=== PATIENT | male | born 1940 | race Caucasian/White ===

== ENCOUNTER 2019-08-07 12:07 | Inpatient (IN) | payer BC, OTHER ==
[~2019-08-07] VITALS: Ht 180.3 cm; Wt 891.3 kg
--- NOTE | 2019-08-07 12:15 | NUR ---
[id number] FROM [facility] FOR NOTED WEAKNESS AND MORE ALTERED THAN NORMAL, TO ER BED 9, HOOKED TO MONITOR, CHANGED TO HOS GOWN, WARM BLABKET PROVIDED, PATIENT AAO x 0, BREATHING EVEN AND UNLABORED, DR HURT AT BEDSIDE
[2019-08-07] MEDS ORDERED: IV NS 0.9% 1,000 ML BAG IV ONE (12:30)
[2019-08-07 12:43] LABS: BASOPHILS # (AUTO) 0.1 /CMM (0.0-0.2); BASOPHILS % (AUTO) 0.9 % (0.0-2.0); EOSINOPHILS % (AUTO) 4.4 % (0.0-6.0); HEMATOCRIT 43 % (39-51); HEMOGLOBIN 13.8 g/dL (13.5-17.5); LYMPHOCYTES # (AUTO) 0.5 /CMM (0.8-4.8); LYMPHOCYTES % (AUTO) 7.5 % (20.0-44.0); MEAN CORPUSCULAR HGB CONC 32 g/dl (31.0-36.0); MEAN CORPUSCULAR VOLUME 85 fL (80-96); MONOCYTES # (AUTO) 0.6 /CMM (0.1-1.30); MONOCYTES % (AUTO) 9.2 % (2.0-12.0); NEUTROPHILS # (AUTO) 5.5 /CMM (1.8-8.9); PLATELET COUNT (AUTO) 292 /CMM (150-450); RED BLOOD CELL COUNT(AUTO) 5.09 MIL/uL (4.5-6.0)
--- NOTE | 2019-08-07 12:55 | NUR ---
DIRECTOR DIGITAL ADVERTISING AT BEDSIDE FOR XRAY
--- NOTE | 2019-08-07 13:04 | NUR ---
urine sample collected via jackson catheter, sample sent to lab
[2019-08-07 13:05] LABS: ALANINE AMINOTRANSFERASE 11 U/L (12-78); ALBUMIN 2.4 g/dL (3.4-5.0); ALKALINE PHOSPHATASE 134 U/L (46-116); ASPARTATE AMINOTRANSFERASE 12 U/L (15-37); BILIRUBIN,DIRECT 0.2 mg/dL (0.0-0.2); BILIRUBIN,TOTAL 0.6 mg/dL (0.2-1.0); CALCIUM, SERUM 8.4 mg/dL (8.5-10.1); CARBON DIOXIDE 30 mmol/L (21-32); CHLORIDE 106 mmol/L (98-107); CREATININE 0.8 mg/dL (0.6-1.3); GLUCOSE 85 mg/dL (74-106); LIPASE 75 U/L (73-393); POTASSIUM 3.5 mmol/L (3.5-5.1); SODIUM SERUM 141 mmol/L (136-145); TOTAL PROTEIN, SERUM 5.6 g/dL (6.4-8.2); UREA NITROGEN, BLOOD 9 mg/dL (7-18)
[2019-08-07 13:09] LABS: APPEARANCE,URINE Clear (CLEAR); BILIRUBIN,URINE Negative (NEGATIVE); BLOOD, URINE Small Ery/uL (NEGATIVE); COLOR,URINE Yellow (YELLOW); KETONES,URINE Negative (NEGATIVE); LEUKOCYTE ESTERASE ,URINE Large (NEGATIVE); NITRITE, URINE Negative (NEGATIVE); PROTEIN,URINE Negative (NEGATIVE); UGLUCOSE Negative (NEGATIVE)
[2019-08-07 13:24] LABS: WBC,URINE 21-50 /HPF (0-3)
[2019-08-07 13:25] LABS: BACTERIA,URINE Moderate /HPF (None Seen); SQUAMOUS EPITHELIAL CELL,UR Rare /HPF (None Seen)
--- NOTE | 2019-08-07 13:42 | NUR ---
PAGED [facility].
[2019-08-07] MEDS ORDERED: IV NS 0.9% 1,000 ML IV PRN (13:46)
--- NOTE | 2019-08-07 13:56 | NUR ---
TELEPHONE ORDERS FOR ADMISSION RECEIVED FROM DR QUINTANA.
[2019-08-07] MEDS ORDERED: ATOR10TA PO (13:58)
[2019-08-07] MEDS ORDERED: PANT40TA2 PO (13:58)
[2019-08-07] MEDS ORDERED: TRAZ-182 PO (13:58)
[2019-08-07] MEDS ORDERED: DABI150C PO (13:58)
[2019-08-07] MEDS ORDERED: POTA10TA10 PO (13:58)
[2019-08-07] MEDS ORDERED: BUPR-51 PO (13:58)
[2019-08-07] MEDS ORDERED: QUET25TA PO (13:58)
[2019-08-07] MEDS ORDERED: CEPH-570 PO (13:58)
[2019-08-07] MEDS ORDERED: ZOLPIDEM TARTRATE 5 MG TABLET PO PRN (14:00)
[2019-08-07] MEDS ORDERED: HYDROCODONE/APAP 5/325MG 1 EACH TABLET PO PRN (14:00)
[2019-08-07] MEDS ORDERED: MAG HYDROX/AL HYDROX/SIMETH 30 ML UDC PO PRN (14:00)
[2019-08-07] MEDS ORDERED: ACETAMINOPHEN 325 MG TABLET PO PRN ×2 (14:00→17:00)
[2019-08-07] MEDS ORDERED: CEFEPIME 1 GM in IV D5W 50 ML IV ONE (14:00)
[2019-08-07] MEDS ORDERED: Z GUARD REMEDY 2 OZ OINT TP PRN (14:00)
[2019-08-07] MEDS ORDERED: ONDANSETRON HCL/PF 4 MG/2 ML VIAL IVP PRN ×2 (14:00→17:00)
[2019-08-07] MEDS ORDERED: MAGNESIUM HYDROXIDE 30 ML UDC PO PRN (14:00)
--- NOTE | 2019-08-07 14:05 | NUR ---
NURSING SUP GAVE [phone].
--- NOTE | 2019-08-07 14:06 | NUR ---
KENNETH BHATT WHEELED OUT PATIENT VIA ticketea FOR HEAD CT
--- NOTE | 2019-08-07 14:10 | NUR ---
REPORT GIVEN TO ESTHER DOTY OF TELE UNIT
[2019-08-07 15:00] VITALS: BP 126/62
[2019-08-07 16:00] VITALS: BP 101/59
[2019-08-07] MEDS ORDERED: ACETAMINOPHEN 650 MG/SUPP.RECT RC PRN (17:00)
[2019-08-07] MEDS: QUETIAPINE FUMARATE 25 MG TABLET PO SCH (17:00)
[2019-08-07] MEDS ORDERED: LORAZEPAM INJ 2 MG/ML VIAL IVP PRN (17:00)
[2019-08-07] MEDS: DABIGATRAN ETEXILATE MESYLATE 150 MG CAPSULE PO SCH (17:00)
[2019-08-07] MEDS: IV NS 0.9% 1,000 ML IV PRN (17:25)
[2019-08-07] MEDS: ATORVASTATIN 10 MG TABLET PO SCH (17:35)
--- NOTE | 2019-08-07 17:35 | NUR ---
COMPOSITE WORKER - MEDICATION, THAT PATIENT IS UNABLE TO SWALLOW ASPIRATION RISK AT THIS TIME
[2019-08-07] MEDS ORDERED: PIPERACILLIN /TAZOBACTAM 3.375 G in IV D5W 50 ML IV ONE (18:00)
--- NOTE | 2019-08-07 18:49 | NUR ---
STORE WORKER PATIENT RESTING IN BED. PATIENT HAS L FA 20 WITH NS 75 ML/ HR. PATIENT HAS 2 L OXYGEN SATURATING >95 % PATIENT SKIN INTACT, NO SOB, NO ACUTE RESPIRATORY DISTRESS. PATIENT URINE YELLOW CLEAR SLIGHTLY CLOUD. AM CARE PROVIDE, PATIENT UNABLE TO TAKE MEDICATION, DO TO CONDITION HE IS ASPIRATION RISK AT THIST TIME. BED LOCKED LOWEST POSITION CALL LIGHT WITH IN REACH ALL SAFETY MEASURE IMPLEMENTED PER HOSPITAL POLICY
--- NOTE | 2019-08-07 19:40 | NUR ---
RN OPENING NOTES RECEIVED REPORT FROM JEREL RN. FOUND Pt ASLEEP IN BED, VERY LETHARGIC. BUT IS ABLE TO AWAKE, WHEN BODY IS SHOOK. Pt IS A/OX/1. Pt IS ABLE TO SITE NAME, BUT SPEECH IS DELAYED AND VERY LETHARGIC IN RESPONSE. WHEN ASKED IF HE KNOWS WHERE HE IS, Pt GIVES NO ANSWER. WHEN ASKED IF HE KNOWS WHERE HE LIVES, Pt SAYS NO. NO S/S OF ACUTE DISTRESS OR SOB NOTED. ON TELE MONITOR SR WHEN AWAKE, SB WHEN SLEEPING. IV ACCESS ON LFA #20G, IVF NS RUNNING @75ML/HR. SAFETY MEASURES IN PLACE. BED LOW, LOCKED, HOB ELEVATED, SIDE RAILS UP, CALL LIGHT AND BEDSIDE TABLE WITHIN REACH. BED ALARM ON. WILL CONTINUE TO MONITOR Pt's CONDITION AND SAFETY THROUGHOUT THE NIGHT.
[2019-08-07] MEDS: TRAZODONE 50 MG TABLET PO SCH (22:00)
--- NOTE | 2019-08-07 22:19 | NUR ---
RN NOTES Pt IS TOO LETHARGIC AND UNABLE TO FOLLOW SIMPLE DIRECTIONS. HELD PO NIGHT MEDS FOR TONIGHT DUE TO ASPIRATION RISK. SWALLOW EVAL ORDERED FOR Pt.
[2019-08-08] VITALS: BP 107/56
[2019-08-08] MEDS: PIPERACILLIN /TAZOBACTAM 3.375 G in IV D5W 100 ML IV SCH ×3 (00:10→17:02)
[2019-08-08 04:00] VITALS: BP 115/70
--- NOTE | 2019-08-08 05:45 | NUR ---
RN NOTES NOTICED SKIN ISSUES ON Pt WHEN GIVING BED BATH EARLIER IN THE SHIFT. PER DAYSHIFT RN WHO ADMITTED THE Pt, STATED THAT HIS SKIN WAS INTACT. NOTED SACRAL/BUTTOCK - REDNESS; SCROTAL REDNESS & SWELLING; LEFT LOWER ABD'L SKIN FOLD - SKIN TEAR, RIGHT LOWER ABD/RT SIDE - DRY/RED PATCHES/SCABS. WILL TAKE PICTURES AND PLACE IN Pt's CHART.
--- NOTE | 2019-08-08 07:00 | NUR ---
RN CLOSING NOTES NO SIGNIFICANT CHANGES IN Pt's CONDITION. NO S/S OF ACUTE DISTRESS OR SOB NOTED DURING THE NIGHT. Pt IS RESTING IN BED. ALL NEEDS MET AND ATTENDED TO. SAFETY MEASURES IN PLACE. ENDORSED TO DAYSHIFT RN FOR Pt's ALECIA.
[2019-08-08 07:05] LABS: BASOPHILS # (AUTO) 0.1 /CMM (0.0-0.2); BASOPHILS % (AUTO) 1.1 % (0.0-2.0); EOSINOPHILS % (AUTO) 7.2 % (0.0-6.0); HEMATOCRIT 43 % (39-51); HEMOGLOBIN 13.9 g/dL (13.5-17.5); LYMPHOCYTES # (AUTO) 0.4 /CMM (0.8-4.8); MEAN CORPUSCULAR HGB CONC 32 g/dl (31.0-36.0); MEAN CORPUSCULAR VOLUME 85 fL (80-96); MONOCYTES # (AUTO) 0.4 /CMM (0.1-1.30); MONOCYTES % (AUTO) 5.3 % (2.0-12.0); NEUTROPHILS # (AUTO) 5.6 /CMM (1.8-8.9); NEUTROPHILS % (AUTO) 80.4 % (43.0-81.0); PLATELET COUNT (AUTO) 279 /CMM (150-450); WHITE BLOOD COUNT (AUTO) 6.9 K/uL (4.3-11.0)
--- NOTE | 2019-08-08 07:27 | NUR ---
senior telecommunications specialist notes place a call to lab ,spoke to rosalio Richardson testing was received by them
[2019-08-08] MEDS ORDERED: PANTOPRAZOLE 40 MG TABLET.DR PO SCH ×2 (07:30)
[2019-08-08 07:52] LABS: CALCIUM, SERUM 8.5 mg/dL (8.5-10.1); CREATININE 0.8 mg/dL (0.6-1.3); POTASSIUM 3.7 mmol/L (3.5-5.1)
[2019-08-08 08:00] VITALS: BP 121/83
[2019-08-08] MEDS: PANTOPRAZOLE 40 MG VIAL IV SCH (09:51)
[2019-08-08] MEDS: POTASSIUM CHLORIDE 10 MEQ TABLET.SA PO SCH (09:51)
[2019-08-08] MEDS: BUPROPION XL 150 MG TAB.ER.24 PO SCH (09:51)
[2019-08-08] MEDS: DABIGATRAN ETEXILATE MESYLATE 150 MG CAPSULE PO SCH ×2 (10:27→17:03)
[2019-08-08] MEDS: QUETIAPINE FUMARATE 25 MG TABLET PO SCH ×2 (11:50→17:02)
[2019-08-08 12:00] VITALS: BP 130/77
[2019-08-08 14:39] LABS: ABG BASE EXCESS 1.2 mmol/L; ABG OXYGEN SATURATION 99.8 % (92.0-98.5); ABG PCO2 36.1 mmHg (35.0-45.0); ABG PH 7.454 (7.350-7.450); AaDO2 211.9 mmHg; COHb 0.4 % (0.5-1.5); MetHb 0.3 % (0.0-1.5); O2Hb 99.1 % (94.0-97.0); SITE, ABG Left Radial; VENT MODE, BG NON REBREATHER
[2019-08-08 16:00] VITALS: BP_SYST 102; BP_SYST 135; BP_DIAS 58; BP_DIAS 94
[2019-08-08] MEDS: ATORVASTATIN 10 MG TABLET PO SCH (17:04)
--- NOTE | 2019-08-08 19:30 | NUR ---
RN OPENING NOTES RECEIVED PATIETN RESTING ON BED, VS WNL, A/O X1. NO S/S DISTRESS. NO S/S OF PAIN, CLIENT DENIES PAIN. CLIENT IS ON EXTERNAL TELEMONITOR, AFIB, HR 89. SATURATING AT 98% ON 2L NS. THE LFA IV INFILTRATED/DISCONTINUED. NEW IV SITE ON RFA, 22G ON NS AT 75ML/HR. THE CLIENT IS PENDING WALLOW EVALUATION. ALL NEEDS RENDERED AT THIS TIME. SAFETY MECHANISMS IN PLACE, WILL CONTINUE TO MONITOR.
--- NOTE | 2019-08-08 19:31 | NUR ---
IV INFILTRATED UPON INITIAL ASSESSMENT, THE IV ON THE LEFT FORM ARM WAS INFILTRATING AND NOT REMOVED OR STOPPED TO PREVENT POSSIBLE SKIN DAMAGE. AFTER STOPPING IV INFUSION AND REMOVING THE IV, THE CLIENT SEEM TO BE IN PAIN. AFTER ASSESSING THE ARM, IT IS NOTED THAT IT IS SWOLLEN AND CAUSING PAIN TO THE CLIENT. AT THIS TIME I AM PUTTING ICE PACKS AND ELEVATING THE EXTREMITY WITH EXTRA PILLOWS. WILL CONTINUE TO MONITOR. THE CHARGE NURSE IS AWARE.
[2019-08-08 20:00] VITALS: BP 111/87
[2019-08-08] MEDS: TRAZODONE 50 MG TABLET PO SCH (22:22)
--- NOTE | 2019-08-08 22:26 | NUR ---
the client is able to swallow the medications.... the trozadone at 2100 was given
[2019-08-09] VITALS (7 sets, daily range): BP systolic 104–145; BP diastolic 63–89
[2019-08-09] MEDS: PIPERACILLIN /TAZOBACTAM 3.375 G in IV D5W 100 ML IV SCH ×3 (00:16→15:46)
[2019-08-09] MEDS: IV NS 0.9% 1,000 ML IV PRN (02:23)
--- NOTE | 2019-08-09 04:19 | NUR ---
PATIENT CODE STATUS IS "FULL CODE" BUT UNDER PLAN IN DR. QUINTANA'S NOTES THE PATIENT IS DNR. AN ATTEMPT HAS BEEN MADE TO VERY THE CLIENT'S STATUS CODE BY CALLING ( [facility]) WHERE THE CLIENT CAME FROM AT [phone], BUT THERE WAS NO RESPONSE. WILL CONTINUE TO ATTEMPT AND TO ENDORSE THE NEXT SHIFT.
--- NOTE | 2019-08-09 06:20 | NUR ---
FOR A SECOND TIME TRIED TO ESTABLISH CODE STATUS OF THE PATIENT WITH THE PLACE WHERE THE CLIENT COMES FROM ( [facility]), STILL UNABLE TO CONFIRM WITH THEM. WILL ENDORSE THE INCOMING SHIFT. [phone].
--- NOTE | 2019-08-09 06:22 | NUR ---
RN CLOSING NOTES PATIENT REMAINS STABLE WITH CHANGE OF STATUS. ALL NEEDS RENDERED AT THIS TIME, WILL ENDORSE THE INCOMING SHIFT FOR CONTINUITY OF CARE.
--- NOTE | 2019-08-09 07:19 | NUR ---
COMMERCIAL INTERNSHIP OPENING NOTES RECEIVED PATIENT IN BED, ASLEEP. PATIENT ON OXYGEN THERAPY AT 4 LPM; BREATHING IS EVEN AND UNLABORED AT THIS TIME. NO S/S OF PAIN SUCH FACIAL GRIMACING, GUARDING OR MOANING. ON EXTERNAL ALTERATIONS SUPERVISOR WITH A CURRENT READING OF A-FIB 81 BPM. RFA IV ACCESS G # 20. SAFETY PRECAUTIONS IN PLACE; BED IN LOW POSITION AND LOCKED, RAILS UP X2, CALL LIGHT WITHIN REACH. WILL CONTINUE TO MONITOR PATIENT.
[2019-08-09] MEDS: POTASSIUM CHLORIDE 10 MEQ TABLET.SA PO SCH (08:29)
[2019-08-09] MEDS: PANTOPRAZOLE 40 MG VIAL IV SCH (08:29)
[2019-08-09] MEDS: DABIGATRAN ETEXILATE MESYLATE 150 MG CAPSULE PO SCH ×2 (08:30→17:00)
[2019-08-09] MEDS: BUPROPION XL 150 MG TAB.ER.24 PO SCH (08:30)
--- NOTE | 2019-08-09 08:39 | NUR ---
ZOOLOGY PROFESSOR NOTES PATIENT IS A/O X1. NOT FOCUSING WELL AND DID NOT LOOK SAFE TO ADMINISTER MEDICATIONS. SWALLOW EVAL PENDING. WILL CONTINUE TO MONITOR.
[2019-08-09] MEDS: QUETIAPINE FUMARATE 25 MG TABLET PO SCH ×2 (11:40→17:10)
[2019-08-09] MEDS: ATORVASTATIN 10 MG TABLET PO SCH (17:10)
--- NOTE | 2019-08-09 18:32 | NUR ---
WOUND/OSTOMY CLINICAL NURSE SPECIALIST CLOSING NOTES PATIENT REMAINS IN BED, ASLEEP. DURING THE DAY PATIENT AWAKE, A/O X1. PATIENT ON OXYGEN THERAPY AT 4 LPM; BREATHING IS EVEN AND UNLABORED AT THIS TIME. NO COMPLAINS OF PAIN THROUGHOUT THE DAY. ON EXTERNAL THREAD CUTTER WITH A CURRENT READING OF A-FIB 90S BPM. RFA IV ACCESS G # 20 INFUSING ZOSYN AT THIS TIME. ALL NEEDS ATTENDED TO THROUGHOUT THE DAY. SAFETY PRECAUTIONS REMAIN IN PLACE; BED IN LOW POSITION AND LOCKED, RAILS UP X2, CALL LIGHT WITHIN REACH. WILL ENDORSE TO HUMAN RESOURCE ASSISTANT NURSE.
--- NOTE | 2019-08-09 19:30 | NUR ---
RN OPENING NOTES: RECEIVED PATIENT RESTING ON BED, VS WNL, A/O X1. NO S/S DISTRESS. NO S/S OF PAIN, CLIENT DENIES PAIN. CLIENT IS ON EXTERNAL TELEMONITOR, AFIB, HR 8O'S. SATURATING AT 99% ON 4L NS. IV SITE ON RFA, 22G ON NS AT 75ML/HR. THE CLIENT IS PENDING WALLOW EVALUATION. ALL NEEDS RENDERED AT THIS TIME. SAFETY MECHANISMS IN PLACE, WILL CONTINUE TO MONITOR
[2019-08-09] MEDS: TRAZODONE 50 MG TABLET PO SCH (21:16)
[2019-08-10] VITALS (10 sets, daily range): BP systolic 116–139; BP diastolic 63–73
[2019-08-10] MEDS: PIPERACILLIN /TAZOBACTAM 3.375 G in IV D5W 100 ML IV SCH ×3 (00:26→15:12)
[2019-08-10] MEDS: IV NS 0.9% 1,000 ML IV PRN (00:37)
--- NOTE | 2019-08-10 06:45 | NUR ---
AFTER UNSUCCESSFUL ATTEMPTS TO START AN IV, A MIDLINE WAS RECOMMENDED TO DR ARELLANO. A MIDLINE HAS BEEN ORDER, OK PER DR ARELLANO. [employer] PER KYLE NURSE FIRE AND EXPLOSION INVESTIGATOR.
[2019-08-10 07:12] LABS: BASOPHILS # (AUTO) 0.1 /CMM (0.0-0.2); BASOPHILS % (AUTO) 0.7 % (0.0-2.0); HEMATOCRIT 43 % (39-51); HEMOGLOBIN 13.8 g/dL (13.5-17.5); LYMPHOCYTES # (AUTO) 0.8 /CMM (0.8-4.8); LYMPHOCYTES % (AUTO) 10.8 % (20.0-44.0); MEAN CORPUSCULAR HGB CONC 32 g/dl (31.0-36.0); MEAN CORPUSCULAR VOLUME 85 fL (80-96); MONOCYTES # (AUTO) 0.9 /CMM (0.1-1.30); MONOCYTES % (AUTO) 11.4 % (2.0-12.0); NEUTROPHILS # (AUTO) 5.2 /CMM (1.8-8.9); NEUTROPHILS % (AUTO) 69.1 % (43.0-81.0); PLATELET COUNT (AUTO) 235 /CMM (150-450); RED BLOOD CELL COUNT(AUTO) 5.03 MIL/uL (4.5-6.0); WHITE BLOOD COUNT (AUTO) 7.5 K/uL (4.3-11.0)
[2019-08-10 07:23] LABS: CALCIUM, SERUM 7.8 mg/dL (8.5-10.1); CREATININE 0.6 mg/dL (0.6-1.3); POTASSIUM 3.8 mmol/L (3.5-5.1)
--- NOTE | 2019-08-10 07:30 | NUR ---
RN OPENING NOTES RECEIVED PT IN BED. AWAKE ALERT AND ORIENTED X1. NO CARDIAC OR REPIRATORY DISTRESS NOTED. NO SOB NOTED. SATURATING WELL AT 2L/MIN VIA NC AT 99%. NO SOB NOTED. BREATHING EVEN AND UNLABORED. ON CARDIAC TELE MONITOR SHOWING SR WITH PVCS WITH HR OF 80S. IV ACCESS NOTED TO BE INFILTRATED UPON ROUNDS ON R FOREARM, INFILTRATE CARE TO SITE PROVIDED. IV ACCESS WAS REMOVED. ICE APPLIED AND EXT WAS ELEVATED TO PILLOW. PER KNOT CUTTER NURSE, AWAITNG MIDLINE PLACEMENT AT THIS TIME PER MD ORDERS. BALLOON SELLER AWARE. WILL FOLLOW UP LATER. FALK CATH INTACT AND PATENT AND DRAINING WITH CLEAR YELLOW URINE. SAFETY PRECAUTIONS IN PLACE. BED LOCKED AND IN LOW POSITION SIDE RAILS UP X2. BED ALARM ON. CALL LIGHT WITHIN REACH. WILL CONT TO MONITOR. .
--- NOTE | 2019-08-10 08:00 | NUR ---
IV INSERTION IN RE-INSERTED TO L HAND G24. INTACT AND PATENT AND FLUSHING WELL. PT TOLERATED PROCEDURE WELL.
[2019-08-10] MEDS: PANTOPRAZOLE 40 MG VIAL IV SCH (08:24)
[2019-08-10] MEDS: BUPROPION XL 150 MG TAB.ER.24 PO SCH (08:24)
[2019-08-10] MEDS: POTASSIUM CHLORIDE 10 MEQ TABLET.SA PO SCH (08:24)
--- NOTE | 2019-08-10 08:30 | NUR ---
MIDLINE INSERTION NOTIFIED MORNING RANCH HELPER REGARDING THE NEED FOR MIDLINE FOR PT. PER RANCH HELPER STILL WAITING FOR CONFIRMATION FROM MIDLINE NURSE.
[2019-08-10] MEDS: DABIGATRAN ETEXILATE MESYLATE 150 MG CAPSULE PO SCH ×2 (08:45→16:26)
--- NOTE | 2019-08-10 11:00 | NUR ---
O2 TITRATION PT WAS ON 2L O2 SATURATING AT 100%. ATTEMPTED TO TITRATE O2 TO 1L/MIN TO SEE IF PT WILL TOLERATE. PT WAS KEPT ON 1L/MIN FOR 1HR STARTING AT 10AM. PT STILL SATURATING AT 99%.
--- NOTE | 2019-08-10 11:00 | NUR ---
MIDLINE INSERTION MIDLINE INSERTED ON R UPPER ARM G18. INTACT AND PATENT AND FLUSHING WELL. PT TOLERATED PROCEDURE WELL.
--- NOTE | 2019-08-10 11:23 | NUR ---
WOUND CARE CONSULT: PT PRESENT WITH MULTIPLE SKIN ISSUES PRESENT ON ADMISSION INCLUDING SACRAL SCAR, ABDOMINAL FOLD OPEN SKIN (MOISTURE ASSOCIATED), RASH TO GROIN FOLDS, BUTTOCKS AND PERINEUM AND RT KNEE ABRASION. RECOMMENDATIONS MADE FOR SKIN PROTECTION. DISCUSSED WITH NURSING STAFF. WILL SEE PRNRajesh NICHOLAS IN AGREEMENT WITH PLAN OF CARE. CURRENT FLAVIA SCORE IS 14.
[2019-08-10] MEDS ORDERED: Z GUARD REMEDY 2 OZ OINT TP PRN (11:30)
[2019-08-10] MEDS: Z GUARD REMEDY 2 OZ OINT TP SCH (11:35)
--- NOTE | 2019-08-10 12:00 | NUR ---
O2 REMOVED ONCE AGAIN TITRATED O2 DOWN. I REMOVED PTS O2 TO SEE IF PT WILL TOLERATE. AFTER KEEPING O2 OFF FOR ABOUT 30MIN. PT STILL SATURATING AT 98-99%. PT DOES NOT NEED O2, HE SATURATES WELL ON ROOM AIR. NO SOB NOTED. PTS BREATHING IS EVEN AND UNLABORED.
[2019-08-10] MEDS: QUETIAPINE FUMARATE 25 MG TABLET PO SCH ×2 (12:11→16:26)
[2019-08-10] MEDS: CLOTRIMAZOLE 1% 15 GM TUBE TP SCH (16:28)
[2019-08-10] MEDS: ATORVASTATIN 10 MG TABLET PO SCH (17:12)
--- NOTE | 2019-08-10 18:51 | NUR ---
RN CLOSING NOTES RN OPENING NOTES PT IN BED. AWAKE ALERT AND ORIENTED X1. NO CARDIAC OR RESPIRATORY DISTRESS NOTED. NO SOB NOTED. SATURATING WELL AON ROOM AIR AT 99%. PT DOES NOT NEED TO BE ON O2. BREATHING EVEN AND UNLABORED. ON CARDIAC TELE MONITOR SHOWING SR WITH PVCS WITH HR OF 80S. MIDLINE WASPLACED TODAY ON PTS R UPPER ARM G18, THERE IS ALSO A PERIPHERAL LINE ON PTS L HAND G24. ALL IV ACCESS ARE INTACT AND PATENT AND FLUSHING WELL. NS CURRENTLY RUNNING AT 75ML/HR. FALK CATH INTACT AND PATENT AND DRAINING WITH CLEAR YELLOW URINE. SAFETY PRECAUTIONS IN PLACE. BED LOCKED AND IN LOW POSITION SIDE RAILS UP X2. BED ALARM ON. CALL LIGHT WITHIN REACH. WILL ENDORSE TO NEXT SHIFT.
[2019-08-10] MEDS: TRAZODONE 50 MG TABLET PO SCH (21:15)
[2019-08-11] VITALS (9 sets, daily range): BP systolic 98–133; BP diastolic 68–87
[2019-08-11] MEDS: PIPERACILLIN /TAZOBACTAM 3.375 G in IV D5W 100 ML IV SCH ×2 (01:15→09:08)
--- NOTE | 2019-08-11 06:47 | NUR ---
RN NOTES, PATIENT IN BED, ASLEEP AT THIS TIME, BUT AROUSABLE TO VERBAL STIMULI, NO SIGNIFICANT CHANGE IN CONDITION DURING THE NIGHT, BREATHING EVEN AND UNLABORED, NO SOB/ACUTE DISTRESS NOTED, BED LOCKED IN IN LOW POSITION, CALL LIGHT W/I REACH, WILL ENDORSE CONTINUITY OF CARE TO ONCOMING NURSE.
--- NOTE | 2019-08-11 07:44 | NUR ---
PHYSICAL SCIENCE AIDE OPENING NOTE RECEIVED PATIENT IN BED RESTING COMFORTABLY. PATIENT IN NO ACUTE DISTRESS. NO SOB NOTED. PATIENT BREATHING IS EVEN AND UNLABORED. PATIENT ON CARDIAC MONITORING READING SINUS RHYTHM HR 75. PATIENT BED ALARM IS ON. PATIENT SAFETY PRECAUTIONS IN PLACE. PATIENT BED IS LOCKED AND IN LOWEST POSITION. CALL LIGHT WITHIN REACH. WILL CONTINUE TO MONITOR.
[2019-08-11] MEDS: PANTOPRAZOLE 40 MG VIAL IV SCH (09:08)
[2019-08-11] MEDS: POTASSIUM CHLORIDE 10 MEQ TABLET.SA PO SCH (09:08)
[2019-08-11] MEDS: BUPROPION XL 150 MG TAB.ER.24 PO SCH (09:08)
[2019-08-11] MEDS: DABIGATRAN ETEXILATE MESYLATE 150 MG CAPSULE PO SCH ×2 (09:10→17:55)
[2019-08-11] MEDS: Z GUARD REMEDY 2 OZ OINT TP SCH (09:11)
[2019-08-11] MEDS: CLOTRIMAZOLE 1% 15 GM TUBE TP SCH ×2 (09:11→17:54)
[2019-08-11] MEDS: QUETIAPINE FUMARATE 25 MG TABLET PO SCH ×2 (11:20→17:53)
[2019-08-11] MEDS ORDERED: MEROPENEM 1 G in IV NS 0.9% 100 ML IV ONE (12:00)
--- NOTE | 2019-08-11 15:28 | NUR ---
MS RN NOTE PATIENT IS IN BED RESTING COMFORTABLY. PATIENT IN NO ACUTE DISTRESS. NO SOB NOTED. PATIENT BREATHING IS EVEN AND UNLABORED. PATIENT BED ALARM IS ON. PATIENT KEPT CLEAN, DRY AND COMFORTABLE THROUGHOUT SHIFT. PATIENT SAFETY PRECAUTIONS IN PLACE. PATIENT BED IS LOCKED AND IN LOWEST POSITION. HOB IS ELEVATED. CALL LIGHT WITHIN REACH. GAVE REPORT AND ENDORSED CARE TO JARROD DOTY FOR ALECIA.
[2019-08-11] MEDS: ATORVASTATIN 10 MG TABLET PO SCH (17:53)
--- NOTE | 2019-08-11 18:48 | NUR ---
RN CLOSING NOTE: NO ACUTE CHANGES NOTED ON SHIFT. PATIENT REMAINS IN BED RESTING COMFORTABLY. ON CONT. 02 VIA NC @ 2LPM WITH SATURATION @ 99%. NO ACUTE DISTRESS NOTED. NO SOB NOTED. PATIENT BREATHING IS EVEN AND UNLABORED. NO PAIN REPORTED ON PATIENT. IV SITE CLEAN, DRY, PATENT AND INTACT. IV INFUSION OF NS @ 75MLS/HR BEING TOLERATED WELL. DNR/DNI STATUS NOTED. CALL LIGHT IN REACH. BED LOCKED LOW AND AT SEMI-ARMENDARIZ'S POSITION. SIDE RAILS UP X3. SAFETY ENSURED AND OBSERVED. DUE MEDICATIONS GIVEN. TREATMENT GIVEN ORDERED. WILL ENDORSE TO ONCOMING SHIFT FOR ALECIA.
--- NOTE | 2019-08-11 19:11 | NUR ---
rn note: report given to Mark. Blanca RN
[2019-08-11] MEDS: MEROPENEM 1 G in IV NS 0.9% 100 ML IV SCH (19:53)
[2019-08-11] MEDS: TRAZODONE 50 MG TABLET PO SCH (22:31)
[2019-08-12] MEDS: IV NS 0.9% 1,000 ML IV PRN (00:37)
[2019-08-12] MEDS: MEROPENEM 1 G in IV NS 0.9% 100 ML IV SCH ×3 (03:47→20:34)
[2019-08-12 04:00] VITALS: BP 117/82
[2019-08-12 06:33] LABS: BASOPHILS % (AUTO) 0.8 % (0.0-2.0); EOSINOPHILS % (AUTO) 8.4 % (0.0-6.0); HEMATOCRIT 44 % (39-51); HEMOGLOBIN 14.2 g/dL (13.5-17.5); LYMPHOCYTES # (AUTO) 0.7 /CMM (0.8-4.8); LYMPHOCYTES % (AUTO) 13.1 % (20.0-44.0); MEAN CORPUSCULAR HGB CONC 32 g/dl (31.0-36.0); MEAN CORPUSCULAR VOLUME 84 fL (80-96); MONOCYTES # (AUTO) 0.5 /CMM (0.1-1.30); MONOCYTES % (AUTO) 8.7 % (2.0-12.0); PLATELET COUNT (AUTO) 252 /CMM (150-450); RED BLOOD CELL COUNT(AUTO) 5.23 MIL/uL (4.5-6.0); WHITE BLOOD COUNT (AUTO) 5.7 K/uL (4.3-11.0)
[2019-08-12 07:02] LABS: CALCIUM, SERUM 8.3 mg/dL (8.5-10.1); CREATININE 0.6 mg/dL (0.6-1.3); POTASSIUM 3.3 mmol/L (3.5-5.1)
[2019-08-12 08:00] VITALS: BP 112/80
--- NOTE | 2019-08-12 08:00 | NUR ---
RN OPENING NOTES RECEIVED PT. IN BED. NO ACUTE DISTRESS NOTED. PT. A&OX1, WITH CONFUSION. PT. ON 2L O2 VIA NC, SATURATING WELL AT 99%. PT. QUAN MIDLINE INTACT, PATENT, FLUSHED WELL. PT. FC IN PLACE, PATENT, DRAINING TO GRAVITY. PT. SAFETY MAINTAINED. CALL LIGHT WITHIN REACH. WILL CONTINUE TO MONITOR.
[2019-08-12] MEDS: PANTOPRAZOLE 40 MG VIAL IV SCH (09:21)
[2019-08-12] MEDS: BUPROPION XL 150 MG TAB.ER.24 PO SCH (09:22)
[2019-08-12] MEDS: POTASSIUM CHLORIDE 10 MEQ TABLET.SA PO SCH (09:22)
[2019-08-12] MEDS: DABIGATRAN ETEXILATE MESYLATE 150 MG CAPSULE PO SCH ×2 (09:25→17:09)
[2019-08-12] MEDS: CLOTRIMAZOLE 1% 15 GM TUBE TP SCH ×2 (09:25→17:09)
[2019-08-12] MEDS: Z GUARD REMEDY 2 OZ OINT TP SCH (09:26)
[2019-08-12] MEDS: POTASSIUM CL. PREMIX PERIPHER. 50 ML IV SCH ×2 (11:44→12:44)
[2019-08-12] MEDS: QUETIAPINE FUMARATE 25 MG TABLET PO SCH ×2 (11:44→17:09)
[2019-08-12 12:00] VITALS: BP 102/77
[2019-08-12 16:00] VITALS: BP 123/89
[2019-08-12] MEDS: ATORVASTATIN 10 MG TABLET PO SCH (17:08)
[2019-08-12 19:30] VITALS: BP 116/78
--- NOTE | 2019-08-12 19:33 | NUR ---
MS RN NOTES PATIENT IN BED, ASLEEP, ALERT AND ORIENTED X 1. BREATHING EVEN AND UNLABORED ON 2L NC SHOWS NO SIGNS OF ACUTE RESPIRATORY DISTRESS, NO ACUTE PAIN. IV ON L HAND 24G AND QUAN MIDLINE RUNNING NS AT 75ML/HR. SHOWS NO SIGNS OF INFILTRATION, NO REDNESS. SAFETY PRECAUTIONS IN PLACE. BED IN LOWEST POSITION, LOCKED, AND CALL LIGHT KEPT WITHIN REACH. WILL CONTINUE TO MONITOR.
--- NOTE | 2019-08-12 19:34 | NUR ---
RN CLOSING NOTES PT. IN BED. NO ACUTE DISTRESS NOTED. PT. A&OX1, WITH CONFUSION. PT. ON 2L O2 VIA NC, SATURATING WELL AT 99%. PT. QUAN MIDLINE INTACT, PATENT, FLUSHED WELL. PT. FC IN PLACE, PATENT, DRAINING TO GRAVITY. PT. SAFETY MAINTAINED. CALL LIGHT WITHIN REACH. ENDORSED PLAN OF CARE TO ONCOMING NURSE FOR CONTINUITY OF CARE
[2019-08-12 20:00] VITALS: BP 116/78
[2019-08-12] MEDS: TRAZODONE 50 MG TABLET PO SCH (21:51)
[2019-08-13] MEDS: IV NS 0.9% 1,000 ML IV PRN (03:19)
[2019-08-13] MEDS: MEROPENEM 1 G in IV NS 0.9% 100 ML IV SCH ×2 (03:19→13:14)
--- NOTE | 2019-08-13 06:45 | NUR ---
MS RN NOTES PATIENT IN BED, ASLEEP, ALERT AND ORIENTED X 1. BREATHING EVEN AND UNLABORED ON 2L NC SHOWS NO SIGNS OF ACUTE RESPIRATORY DISTRESS, NO ACUTE PAIN. IV ON L HAND 24G AND QUAN MIDLINE RUNNING NS AT 75ML/HR. SHOWS NO SIGNS OF INFILTRATION, NO REDNESS. ALL DUE MEDICATIONS GIVEN. SAFETY PRECAUTIONS IN PLACE. BED IN LOWEST POSITION, LOCKED, AND CALL LIGHT KEPT WITHIN REACH. WILL ENDORSE TO ONCOMING NURSE.
--- NOTE | 2019-08-13 07:15 | NUR ---
MS RN NOTES CALLED CENTRAL SUPPLY FOR DVT PUMP. WILL ENDORSE TO ONCOMING NURSE
--- NOTE | 2019-08-13 07:59 | NUR ---
MS/RN OPENING NOTES RECEIVED PATIENT IN BED, ASLEEP EASILY AROUSABLE, ALERT AND ORIENTED X 1. BREATHING EVEN AND UNLABORED ON 2L NC SHOWS NO SIGNS OF ACUTE RESPIRATORY DISTRESS, NO ACUTE PAIN. IV ON L HAND 24G AND QUAN MIDLINE WITH IVF OF NS1L AT 75ML/HR ON AND INFUSING WELL. NO SIGNS OF INFILTRATION, NO REDNESS. SAFETY PRECAUTIONS IN PLACE. BED IN LOWEST POSITION, LOCKED, AND CALL LIGHT KEPT WITHIN REACH. WILL CONTINUE TO MONITOR.
[2019-08-13 08:00] VITALS: BP 139/96
[2019-08-13] MEDS: BUPROPION XL 150 MG TAB.ER.24 PO SCH (09:21)
[2019-08-13] MEDS: PANTOPRAZOLE 40 MG VIAL IV SCH (09:21)
[2019-08-13] MEDS: POTASSIUM CHLORIDE 10 MEQ TABLET.SA PO SCH (09:21)
[2019-08-13] MEDS: DABIGATRAN ETEXILATE MESYLATE 150 MG CAPSULE PO SCH ×2 (09:22→17:20)
[2019-08-13] MEDS: Z GUARD REMEDY 2 OZ OINT TP SCH (09:23)
[2019-08-13] MEDS: CLOTRIMAZOLE 1% 15 GM TUBE TP SCH ×2 (09:23→17:24)
[2019-08-13] MEDS: QUETIAPINE FUMARATE 25 MG TABLET PO SCH ×2 (13:14→17:19)
[2019-08-13 16:00] VITALS: BP 130/81
[2019-08-13] MEDS: ATORVASTATIN 10 MG TABLET PO SCH (17:19)
--- NOTE | 2019-08-13 19:16 | NUR ---
MS/RN NOTES PATIENT IS ALERT AND ORIENTED X1. PATIENT DENIES PAIN AT THIS TIME. RESPIRATION REGULAR AND UNLABORED. THE PATIENT IN NO APPARENT RESPIRATORY DISTRESS. SEEN AND EXAMINED BY MD WITH ORDERS MADE AND CARRIED OUT. ALL DUE MEDICATIONS WAS GIVEN PATIENT DISCHARGED AT 1830. PATIENT WAS GIVEN DISCHARGED INSTRUCTIONS AND PATIENT VERBALIZED UNDERSTANDING. THE PATIENT LEFT THE HOSPITAL IN STABLE CONDITION, PLUG CUTTING MACHINE OPERATOR BY 2 EMT VIA AMBULANCE.
== END 2019-08-13 18:30 | disposition home or self-care (01) | DRG 871 ==
LOC: ER 12:12 → TELE1 14:42 → MEDSG1 08-11 08:12 → MED 08-12 10:29
PROVIDERS: ADMIT Legal Medicine; ATTEND Legal Medicine
PROC: 05H933Z Insertion of Infusion Device into Right Brachial Vein, Percutaneous Approach (ICD-10-PCS; principal; 2019-08-11)
DX: A41.9 Sepsis, unspecified organism (principal); G93.41 Metabolic encephalopathy; I48.20 Chronic atrial fibrillation, unspecified; N39.0 Urinary tract infection, site not specified; F03.90 Unspecified dementia, unspecified severity, without behavioral disturbance, psychotic disturbance, mood disturbance, and anxiety; Z87.440 Personal history of urinary (tract) infections; D72.829 Elevated white blood cell count, unspecified; B96.20 Unspecified Escherichia coli [E. coli] as the cause of diseases classified elsewhere; Z66 Do not resuscitate; F09 Unspecified mental disorder due to known physiological condition; K21.9 Gastro-esophageal reflux disease without esophagitis; D64.9 Anemia, unspecified; F41.9 Anxiety disorder, unspecified; F32.9 Major depressive disorder, single episode, unspecified; I12.9 Hypertensive chronic kidney disease with stage 1 through stage 4 chronic kidney disease, or unspecified chronic kidney disease; N18.9 Chronic kidney disease, unspecified
CPT/HCPCS: 36415; 36600; 70450-TC; 71045-TC; 80048-TC; 80076-TC; 81000-TC; 82803-TC; 82947-TC; 82962-TC; 83690-TC; 83735-TC; 84484-TC; 85025-TC; 87081-TC; 87086-TC; 87186-TC; 92611-TC; 94760-TC; 94799-TC; C9113; G0378; J0692; J2185; J2543; J3480; J7030; J7060; U0003-CS

== ENCOUNTER 2019-10-20 22:31 | Emergency (ER) | payer BC ==
[~2019-10-20] VITALS: Ht 175.3 cm; Wt 88.9 kg
[~2019-10-20 22:31] MED LIST: ATOR10TA PO; BUPR-51 PO; CEPH-570 PO; DABI150C PO; PANT40TA2 PO; POTA10TA10 PO; QUET25TA PO; TRAZ-182 PO
--- NOTE | 2019-10-20 22:31 | NUR ---
PT BIBA FROM [facility] HOME FOR GENERALIZED WEAKNESS AND LOSS OF APPETITE X 3 DAYS. PT AAOX1, UNABLE TO ANSWER QUESTIONS BUT RESPONSIVE TO MECHANICAL STIMULI. PT NOT IN RESPIRATORY DISTRESS. PT CONNECTED TO THE HEAD IRRIGATOR AND POX
--- NOTE | 2019-10-20 22:37 | NUR ---
ELICEO : [phone]
[2019-10-20] MEDS ORDERED: LIDOCAINE 2% JEL UROJET 10 ML MM ONE (22:44)
--- NOTE | 2019-10-20 22:50 | NUR ---
MANAGER ENROLLMENT AT BEDSIDE FOR BLOOD DRAW
[2019-10-20 23:07] LABS: BASOPHILS % (AUTO) 0.7 % (0.0-2.0); EOSINOPHILS % (AUTO) 1.5 % (0.0-6.0); HEMATOCRIT 45 % (39-51); HEMOGLOBIN 14.3 g/dL (13.5-17.5); LYMPHOCYTES # (AUTO) 0.6 /CMM (0.8-4.8); LYMPHOCYTES % (AUTO) 8.5 % (20.0-44.0); MEAN CORPUSCULAR HGB CONC 32 g/dl (31.0-36.0); MEAN CORPUSCULAR VOLUME 86 fL (80-96); MONOCYTES # (AUTO) 0.8 /CMM (0.1-1.30); MONOCYTES % (AUTO) 12.1 % (2.0-12.0); NEUTROPHILS # (AUTO) 5.1 /CMM (1.8-8.9); NEUTROPHILS % (AUTO) 77.2 % (43.0-81.0); PLATELET COUNT (AUTO) 245 /CMM (150-450); WHITE BLOOD COUNT (AUTO) 6.6 K/uL (4.3-11.0)
--- NOTE | 2019-10-20 23:15 | NUR ---
URINE COLLECTED AND SENT TO LAB
--- NOTE | 2019-10-20 23:16 | NUR ---
FALK CATHETER REPLACED. 18 F. 200 MLS URINE DRAINED. YELLOW-ORANGE. CLOUDY. NOTED W ODOR
[2019-10-20 23:23] LABS: CALCIUM, SERUM 8.7 mg/dL (8.5-10.1); CARBON DIOXIDE 28 mmol/L (21-32); CHLORIDE 107 mmol/L (98-107); CREATININE 0.9 mg/dL (0.6-1.3); GLUCOSE 105 mg/dL (74-106); POTASSIUM 3.8 mmol/L (3.5-5.1); SODIUM SERUM 141 mmol/L (136-145); UREA NITROGEN, BLOOD 17 mg/dL (7-18)
[2019-10-20 23:36] LABS: APPEARANCE,URINE Slightly Cloudy (CLEAR); BILIRUBIN,URINE SMALL (NEGATIVE); BLOOD, URINE Large Ery/uL (NEGATIVE); COLOR,URINE Orange (YELLOW); KETONES,URINE Negative (NEGATIVE); LEUKOCYTE ESTERASE ,URINE Large (NEGATIVE); NITRITE, URINE Positive (NEGATIVE); PROTEIN,URINE 100 mg/dl (NEGATIVE); UGLUCOSE Negative (NEGATIVE)
[2019-10-20 23:37] LABS: ALANINE AMINOTRANSFERASE < 6 U/L (12-78); ALBUMIN 2.1 g/dL (3.4-5.0); ALKALINE PHOSPHATASE 110 U/L (46-116); ASPARTATE AMINOTRANSFERASE 12 U/L (15-37); B-TYPE NATRIURETIC PEPTIDE 2243 PG/ML (0-125); BILIRUBIN,DIRECT 0.3 mg/dL (0.0-0.2); BILIRUBIN,TOTAL 0.7 mg/dL (0.2-1.0); TOTAL PROTEIN, SERUM 5.7 g/dL (6.4-8.2)
[2019-10-21] MEDS ORDERED: CEFTRIAXONE 1 G in IV D5W 50 ML IV ONE ×2
[2019-10-21 00:05] LABS: BACTERIA,URINE 4+ /HPF (None Seen); RBC,URINE TOO NUMEROUS TO COUN /HPF (0-2); SQUAMOUS EPITHELIAL CELL,UR Moderate /HPF (None Seen); WBC,URINE TOO NUMEROUS TO COUN /HPF (0-3)
[2019-10-21] MEDS ORDERED: CEFTRIAXONE 1GM BAG (ER ONLY) 50 ML IV ONE (00:05)
--- NOTE | 2019-10-21 00:18 | NUR ---
TONE CAT TO SCOOP MACHINE OPERATOR THE PT BACK TO THE FACILITY: [id number]
[2019-10-21 02:21] VITALS: BP 105/72
--- NOTE | 2019-10-21 02:21 | NUR ---
Patient discharged to home in stable condition. Written and verbal after care instructions given. Patient verbalizes understanding of instruction.IV removed. Catheter intact and site benign. Pressure and 4x4 applied to site. No bleeding noted.
== END 2019-10-21 02:22 | disposition home or self-care (01) ==
LOC: ER 22:33
DX: N39.0 Urinary tract infection, site not specified (principal); F03.90 Unspecified dementia, unspecified severity, without behavioral disturbance, psychotic disturbance, mood disturbance, and anxiety; I11.0 Hypertensive heart disease with heart failure; E78.5 Hyperlipidemia, unspecified; I48.91 Unspecified atrial fibrillation; Z88.3 Allergy status to other anti-infective agents; Z88.8 Allergy status to other drugs, medicaments and biological substances; Z79.899 Other long term (current) drug therapy; Z95.0 Presence of cardiac pacemaker
CPT/HCPCS: 36415; 51702; 71045; 80048; 80076; 81001; 83605; 83880; 84145; 84484; 85025; 85730; 87040 ×2; 87086; 93005; 96365; 99285; J0696; J3490; 81000-TC; J7060